=== PATIENT | male | born 1975 | race African-American/Black ===

== ENCOUNTER 2017-01-07 22:23 | Emergency (ER) | payer BC ==
[~2017-01-07] VITALS: Ht 182.9 cm; Wt 82.0 kg
[~2017-01-07 22:23] MED LIST: [UNRECOGNIZED DRUG - OTHER]
[2017-01-07] MEDS ORDERED: METHYLPREDNISOLONE SOD SUCC 125 MG/2 ML VIAL IV ONE (23:45)
[2017-01-07] MEDS ORDERED: CEFAZOLIN 1000MG PREMIX 50 ML IV ONE (23:45)
[2017-01-07] MEDS ORDERED: ONDANSETRON HCL 4MG/2ML VIAL IV ONE (23:45)
[2017-01-07] MEDS ORDERED: MORPHINE SULFATE 4 MG/ML CPJ (NOT FOR IM USE) IV ONE (23:45)
[2017-01-07 23:55] LABS: BASOPHILS % 0.8 % (0.0-2.0); EOSINOPHILS % 0.7 % (0.0-5.0); HEMATOCRIT. 43.1 % (42.0-52.0); HEMOGLOBIN. 14.6 g/dL (14.0-18.0); LYMPHOCYTES % 16.8 % (20.0-50.0); MEAN CORPUSCULAR HEMOGLOBIN 30.5 pg (28.0-32.0); MEAN CORPUSCULAR VOLUME 89.8 fL (80.0-94.0); MONOCYTES % 6.3 % (2.0-8.0); NEUTROPHILS % 75.4 % (40.0-76.0); PLATELET 333 x1000/uL (130-400)
[2017-01-07 23:59] LABS: CHLORIDE 104 mEq/L (98-107)
[2017-01-08 00:06] LABS: CARBON DIOXIDE 28 mEq/L (21-32)
[2017-01-08] MEDS ORDERED: LIDOCAINE HCL 1% 20ML VIAL (Pyxis) INJ INFIL ONE (00:45)
[2017-01-08 01:00] VITALS: BP 112/73
== END 2017-01-08 01:45 | disposition home or self-care (01) ==
LOC: ER 22:59
DX: L03.032 Cellulitis of left toe (principal); F12.10 Cannabis abuse, uncomplicated; Z71.51 Drug abuse counseling and surveillance of drug abuser
CPT/HCPCS: 36415; 80048; 85025; 85651; 96365; 96375; 99284; J0690; J2270; J2405; J2930; J3490; Z7610

== ENCOUNTER → 2017-11-18 | Outpatient (CLI) | payer BC ==
[2017-11-18 06:23] LABS: CLARITY URINE CLEAR (CLEAR); COLOR URINE YELLOW (YELLOW); KETONES URINE NEGATIVE (NEGATIVE); LEUKOCYTE ESTERASE URINE NEGATIVE (NEGATIVE); NITRITE URINE NEGATIVE (NEGATIVE); OCCULT BLOOD URINE TRACE (NEGATIVE); PROTEIN URINE NEGATIVE (NEGATIVE); SPECIFIC GRAVITY URINE 1.028 (1.005-1.030)
[2017-11-18 06:28] LABS: BASOPHILS % 0.6 % (0.0-2.0); EOSINOPHILS % 1.3 % (0.0-5.0); HEMATOCRIT. 41.8 % (42.0-52.0); HEMOGLOBIN. 14.3 g/dL (14.0-18.0); LYMPHOCYTES % 26.5 % (20.0-50.0); MEAN CORPUSCULAR HEMOGLOBIN 30.8 pg (28.0-32.0); MEAN CORPUSCULAR VOLUME 90.4 fL (80.0-94.0); MEAN PLATELET VOLUME 7.5 fl (7.4-10.4); MONOCYTES % 5.4 % (2.0-8.0); NEUTROPHILS % 66.2 % (40.0-76.0); PLATELET 357 x1000/uL (130-400); RED BLOOD CELL COUNT 4.63 mill/uL (4.7-6.1); RED CELL DISTRIBUTION WIDTH 14.1 % (11.6-14.6)
[2017-11-18 06:43] LABS: CHLORIDE 107 mEq/L (98-107)
[2017-11-18 06:46] LABS: PROSTRATE SPECIFIC AG TOTAL 0.83 ng/mL (0.0-4.0)
[2017-11-18 06:51] LABS: LDL CHOLESTEROL 47 mg/dL (5-100); TOTAL IRON BINDING CAPACITY 332 ug/dL (250-450)
[2017-11-18 06:54] LABS: HDL CHOLESTEROL 35 mg/dL (40-59)
== END | disposition home or self-care (01) ==
LOC: LAB 05:05
PROVIDERS: ATTEND Internal Medicine Geriatric Medicine
DX: Z12.5 Encounter for screening for malignant neoplasm of prostate (principal); I10 Essential (primary) hypertension; R73.09 Other abnormal glucose; N39.0 Urinary tract infection, site not specified
CPT/HCPCS: 36415; 80061; 82607; 82652; 82728; 83036; 83540; 83550; 84153; 84443; 86592; G0103

== ENCOUNTER → 2019-03-04 | Outpatient (CLI) | payer BC | END | disposition home or self-care (01) | LOC: MRI 05:55 | PROVIDERS: ATTEND Internal Medicine Geriatric Medicine | DX: M51.17 Intervertebral disc disorders with radiculopathy, lumbosacral region (principal); M12.88 Other specific arthropathies, not elsewhere classified, other specified site; M47.26 Other spondylosis with radiculopathy, lumbar region | CPT/HCPCS: 72148 ==

== ENCOUNTER → 2019-04-15 | Outpatient (CLI) | payer BC ==
[2019-04-15 07:29] LABS: CHLORIDE 112 mEq/L (98-107)
[2019-04-15 07:31] LABS: CLARITY URINE TURBID (CLEAR); COLOR URINE YELLOW (YELLOW); KETONES URINE NEGATIVE (NEGATIVE); LEUKOCYTE ESTERASE URINE NEGATIVE (NEGATIVE); NITRITE URINE NEGATIVE (NEGATIVE); OCCULT BLOOD URINE NEGATIVE (NEGATIVE); PROTEIN URINE NEGATIVE (NEGATIVE)
[2019-04-15 07:34] LABS: BASOPHILS % 0.8 % (0.0-2.0); EOSINOPHILS % 0.7 % (0.0-5.0); HEMATOCRIT. 43.3 % (42.0-52.0); HEMOGLOBIN. 14.5 g/dL (14.0-18.0); LYMPHOCYTES % 21.1 % (20.0-50.0); MEAN CORPUSCULAR HEMOGLOBIN 30.7 pg (28.0-32.0); MEAN CORPUSCULAR VOLUME 91.5 fL (80.0-94.0); MEAN PLATELET VOLUME 7.4 fl (7.4-10.4); MONOCYTES % 5.8 % (2.0-8.0); NEUTROPHILS % 71.6 % (40.0-76.0); PLATELET 380 x1000/uL (130-400); RED BLOOD CELL COUNT 4.73 mill/uL (4.7-6.1); RED CELL DISTRIBUTION WIDTH 14.4 % (11.6-14.6)
[2019-04-15 07:37] LABS: TOTAL IRON BINDING CAPACITY 357 ug/dL (250-450)
[2019-04-15 07:41] LABS: LDL CHOLESTEROL 57 mg/dL (5-100)
[2019-04-15 07:44] LABS: HDL CHOLESTEROL 41 mg/dL (40-59)
[2019-04-15 16:24] LABS: PROSTRATE SPECIFIC AG TOTAL 0.68 ng/mL (0.0-4.0)
== END | disposition home or self-care (01) ==
LOC: LAB 05:46
PROVIDERS: ATTEND Internal Medicine Geriatric Medicine
DX: Z12.5 Encounter for screening for malignant neoplasm of prostate (principal); I10 Essential (primary) hypertension; R73.09 Other abnormal glucose
CPT/HCPCS: 36415; 80053; 80061; 81003; 82306; 82607; 83036; 83540; 83550; 84153; 84443; 85025; 86592; G0103

== ENCOUNTER 2020-03-06 22:47 | Emergency (ER) | payer BC ==
[~2020-03-06] VITALS: Ht 182.9 cm; Wt 82.2 kg
[2020-03-06] MEDS ORDERED: KETOROLAC 30MG/ML VIAL IM ONE (23:45)
[2020-03-07 00:11] VITALS: BP 108/75
== END 2020-03-07 00:10 | disposition home or self-care (01) ==
LOC: ER 22:47
DX: M25.512 Pain in left shoulder (principal); M54.2 Cervicalgia; R03.0 Elevated blood-pressure reading, without diagnosis of hypertension; X50.0XXA Overexertion from strenuous movement or load, initial encounter; Y93.89 Activity, other specified; Y92.238 Other place in hospital as the place of occurrence of the external cause; Y99.0 Civilian activity done for income or pay
CPT/HCPCS: 96372; 99283; J1885

== ENCOUNTER → 2020-08-11 | Outpatient (CLI) | payer BC | END | disposition home or self-care (01) | LOC: RAD 07:24 | PROVIDERS: ATTEND Internal Medicine | DX: M47.817 Spondylosis without myelopathy or radiculopathy, lumbosacral region (principal); R20.2 Paresthesia of skin; R10.2 Pelvic and perineal pain | CPT/HCPCS: 72110; 72170 ==

== ENCOUNTER → 2021-12-26 | Outpatient (CLI) | payer BC ==
[~2021-12-26] MED LIST changes: +NAPR-681 MT
[2021-12-26 06:58] LABS: CLARITY URINE CLEAR (CLEAR); COLOR URINE YELLOW (YELLOW); KETONES URINE NEGATIVE (NEGATIVE); LEUKOCYTE ESTERASE URINE NEGATIVE (NEGATIVE); NITRITE URINE NEGATIVE (NEGATIVE); OCCULT BLOOD URINE NEGATIVE (NEGATIVE); PH URINE 5.5 (4.5-8.0); PROTEIN URINE NEGATIVE (NEGATIVE); SPECIFIC GRAVITY URINE 1.023 (1.005-1.030)
[2021-12-26 07:35] LABS: PROSTRATE SPECIFIC AG TOTAL 0.89 ng/mL (0.0-4.0)
[2021-12-26 07:44] LABS: CHLORIDE 110 mEq/L (98-107)
[2021-12-26 07:46] LABS: HEPATITIS B SURFACE ANTIGEN NEGATIVE
[2021-12-26 08:24] LABS: HDL CHOLESTEROL 32 mg/dL (40-59); LDL CHOLESTEROL 73 mg/dL (5-100); TOTAL IRON BINDING CAPACITY 355 ug/dL (250-450)
== END | disposition home or self-care (01) ==
LOC: LAB 06:25
PROVIDERS: ATTEND Internal Medicine
DX: Z01.89 Encounter for other specified special examinations (principal)
CPT/HCPCS: 36415; 80053; 80061; 81003; 82248; 83036; 83540; 83550; 84153; 84436; 84443; 84479; 84550; 86705; 86709; 86803; 87340; G0103

== ENCOUNTER → 2022-05-02 | Outpatient (CLI) | payer BC | END | disposition home or self-care (01) | LOC: MRI 06:10 | PROVIDERS: ATTEND Internal Medicine | DX: M50.11 Cervical disc disorder with radiculopathy, high cervical region (principal); M50.121 Cervical disc disorder at C4-C5 level with radiculopathy; M50.122 Cervical disc disorder at C5-C6 level with radiculopathy; M47.22 Other spondylosis with radiculopathy, cervical region; M51.17 Intervertebral disc disorders with radiculopathy, lumbosacral region; M47.27 Other spondylosis with radiculopathy, lumbosacral region; M51.14 Intervertebral disc disorders with radiculopathy, thoracic region; M48.02 Spinal stenosis, cervical region | CPT/HCPCS: 72141; 72146; 72148 ==

== ENCOUNTER → 2022-05-04 | Outpatient (CLI) | payer BC ==
[2022-05-04 07:43] LABS: BASOPHILS % 0.8 % (0.0-2.0); EOSINOPHILS % 1.1 % (0.0-5.0); HEMATOCRIT. 45.7 % (42.0-52.0); HEMOGLOBIN. 15.3 g/dL (14.0-18.0); LYMPHOCYTES % 26.5 % (20.0-50.0); MEAN CORPUSCULAR HEMOGLOBIN 30.1 pg (28.0-32.0); MEAN CORPUSCULAR VOLUME 89.9 fL (80.0-94.0); MEAN PLATELET VOLUME 6.8 fl (7.4-10.4); MONOCYTES % 5.6 % (2.0-8.0); PLATELET 309 x1000/uL (130-400); RED BLOOD CELL COUNT 5.08 mill/uL (4.7-6.1); RED CELL DISTRIBUTION WIDTH 13.8 % (11.6-14.6)
[2022-05-04 09:25] LABS: VITAMIN B12 SERUM 442 pg/mL (211-911)
[2022-05-04 12:26] LABS: PROSTRATE SPECIFIC AG TOTAL 1.11 ng/mL (0.0-4.0)
[2022-05-05 09:10] LABS: HELICOBACTER PYLORI AB IGG 0.7 (0.00-0.79); VITAMIN D 25-OH 12.2 ng/mL (30.0-100.0)
== END | disposition home or self-care (01) ==
LOC: LAB 06:15
PROVIDERS: ATTEND Internal Medicine
DX: Z12.5 Encounter for screening for malignant neoplasm of prostate (principal); E70.5 Disorders of tryptophan metabolism; R73.09 Other abnormal glucose; E55.9 Vitamin D deficiency, unspecified
CPT/HCPCS: 36415; 80061; 82306; 82607; 83036; 84153; 84402; 84403; 85025; 86677; G0103

== ENCOUNTER → 2023-04-17 | Outpatient (CLI) | payer BC ==
[2023-04-17 07:33] LABS: BASOPHILS % 0.5 % (0.0-2.0); EOSINOPHILS % 1.2 % (0.0-5.0); HEMATOCRIT. 45.4 % (42.0-52.0); HEMOGLOBIN. 15.1 g/dL (14.0-18.0); LYMPHOCYTES % 24.9 % (20.0-50.0); MEAN CORPUSCULAR HEMOGLOBIN 30.4 pg (28.0-32.0); MEAN CORPUSCULAR HGB CONC 33.3 g/dL (31.0-37.0); MEAN CORPUSCULAR VOLUME 91.1 fL (80.0-94.0); MONOCYTES % 7.7 % (2.0-8.0); NEUTROPHILS % 65.7 % (40.0-76.0); PLATELET 289 x1000/uL (130-400); RED BLOOD CELL COUNT 4.98 mill/uL (4.7-6.1); RED CELL DISTRIBUTION WIDTH 13.7 % (11.6-14.6); WHITE BLOOD COUNT 9.3 x1000/uL (4.5-11.0)
[2023-04-17 08:05] LABS: ALANINE AMINOTRANSFERASE 24 IU/L (10-49); ALBUMIN 4.6 g/dL (3.2-4.8); ASPARTATE AMINOTRANSFERASE 27 IU/L (<34); BILIRUBIN DIRECT 0.3 mg/dL (<=3.0); BILIRUBIN TOTAL 1.2 mg/dL (0.1-1.0); CALCIUM 9.3 mg/dL (8.7-10.4); CARBON DIOXIDE 26 mEq/L (21-32); CHLORIDE 105 mEq/L (98-107); CHOLESTEROL 127 mg/dL (<200); CREATININE 0.9 mg/dL (0.6-1.3); GLUCOSE 111 mg/dL (70-105); HDL CHOLESTEROL 30 mg/dL (>55); IRON 77 ug/dL (65-175); LDL CHOLESTEROL 75 mg/dL (5-100); PHOSPHORUS 2.9 mg/dL (2.5-4.9); POTASSIUM 3.8 mEq/L (3.5-5.1); PROTEIN TOTAL 7.2 g/dL (6.0-8.3); SODIUM 140 mEq/L (136-145); TOTAL IRON BINDING CAPACITY 346 ug/dl (250-425); TRIGLYCERIDE 202 mg/dL (0-150); UREA NITROGEN BLOOD 21 mg/dL (9-23); URIC ACID 6.3 mg/dL (3.7-9.2)
[2023-04-17 10:40] LABS: ERYTHROCYTE SEDIMENTATION RATE 2 mm/hr (0-15)
== END | disposition home or self-care (01) ==
LOC: LAB 06:14
PROVIDERS: ATTEND Internal Medicine
DX: Z00.00 Encounter for general adult medical examination without abnormal findings (principal)
CPT/HCPCS: 36415; 80053; 80061; 82248; 83036; 83540; 83550; 84100; 84153; 84436; 84443; 84481; 84550; 85025; 85651; G0103

== ENCOUNTER → 2023-05-23 | Outpatient (CLI) | payer BC | END | disposition home or self-care (01) | LOC: MRI 06:20 | PROVIDERS: ATTEND Internal Medicine | DX: S46.811A Strain of other muscles, fascia and tendons at shoulder and upper arm level, right arm, initial encounter (principal); M75.121 Complete rotator cuff tear or rupture of right shoulder, not specified as traumatic; R05.9 Cough, unspecified; M19.011 Primary osteoarthritis, right shoulder; M65.811 Other synovitis and tenosynovitis, right shoulder; X58.XXXA Exposure to other specified factors, initial encounter; Y93.89 Activity, other specified; Y92.89 Other specified places as the place of occurrence of the external cause; Y99.8 Other external cause status | CPT/HCPCS: 71046; 73221 ==

== ENCOUNTER → 2024-05-19 | Outpatient (CLI) | payer BC | END | disposition home or self-care (01) | LOC: MRI 09:29 | DX: M51.379 Other intervertebral disc degeneration, lumbosacral region without mention of lumbar back pain or lower extremity pain (principal); M48.07 Spinal stenosis, lumbosacral region; M51.27 Other intervertebral disc displacement, lumbosacral region | CPT/HCPCS: 72148 ==